=== PATIENT | female | born 1995 | race African-American/Black ===

== ENCOUNTER 2022-11-04 20:52 | Emergency (ER) | payer BC ==
[~2022-11-04] VITALS: Ht 157.5 cm; Wt 72.0 kg
[2022-11-04] MEDS ORDERED: IBUPROFEN 600MG TABLET PO STA (23:47)
[2022-11-04 23:59] VITALS: BP 118/79
[2022-11-05] MEDS ORDERED: NAPR500T7 PO (03:58)
[2022-11-05] MEDS ORDERED: AMOX-494 PO (03:58)
[2022-11-05] MEDS ORDERED: HYDR-4001 MT (03:58)
== END 2022-11-05 04:30 | disposition home or self-care (01) ==
LOC: ER 20:52
DX: S02.2XXA Fracture of nasal bones, initial encounter for closed fracture (principal); Y08.89XA Assault by other specified means, initial encounter; Y93.89 Activity, other specified; Y92.89 Other specified places as the place of occurrence of the external cause; Y99.8 Other external cause status
CPT/HCPCS: 70486; 81025; 99284